=== PATIENT | female | born 1935 | race Caucasian/White ===

== ENCOUNTER 2017-03-08 15:33 | Outpatient (CLI) | payer MEDICARE, BC | END 2017-03-08 15:34 | disposition home or self-care (01) | LOC: BICRAD 15:33 | PROVIDERS: ATTEND Podiatrist Foot & Ankle Surgery | DX: M79.672 Pain in left foot (principal); M79.671 Pain in right foot; G89.29 Other chronic pain ==

== ENCOUNTER 2017-03-12 08:00 | Outpatient (CLI) | payer MEDICARE, BC | END 2017-03-12 08:01 | disposition home or self-care (01) | LOC: BICMRI 08:00 | PROVIDERS: ATTEND Podiatrist Foot & Ankle Surgery | DX: M79.604 Pain in right leg (principal); M79.605 Pain in left leg; M19.071 Primary osteoarthritis, right ankle and foot; M19.072 Primary osteoarthritis, left ankle and foot; Z98.890 Other specified postprocedural states ==

== ENCOUNTER 2017-03-20 11:16 | Emergency (ER) | payer MEDICARE, BC ==
[2017-03-20 11:54] LABS: #Basophils 0.1 thou/uL (0.0-0.2); #Eosinphils 0.3 thou/uL (0.0-0.7); #Lymphocytes 1.9 thou/uL (1.20-3.40); #Monocytes 0.6 thou/uL (0.11-0.59); #Neutrophils 6.6 thou/uL (1.40-6.50); %Basophils 0.5 % (0.0-1.0); %Eosinophils 3.3 % (0.0-10.0); %Lymphocytes 19.9 % (21.0-51.0); %Monocytes 6.4 % (0.0-10.0); %Neutrophils 69.8 % (42.0-75.0); Hemoglobin 14.3 g/dL (12.0-16.0); Mean Corpuscular HGB CONC 32.6 g/dL (32.0-36.0); Mean Corpuscular Hemoglobin 30.7 pg (27.0-31.0); Mean Corpuscular Volume 94.5 fl (81.0-99.0); Mean Platelet Volume 9.3 fL (7.4-10.4); Platelet Count 241 thou/uL (130-400); RBC Distribution Width 12.7 % (11.5-14.5); Red Blood Cell (RBC) Count 4.65 mill/uL (4.20-5.40); White Blood Cell (WBC) Count 9.5 thou/uL (4.8-10.8)
[2017-03-20 12:15] LABS: ALT (SGPT) 24 U/L (8-55); AST (SGOT) 18 U/L (5-34); Alkaline Phosphatase 46 U/L (40-150); Anion Gap 14 mmol/L (10-20); BUN (Urea Nitrogen) 44 mg/dL (9.8-20.1); Bilirubin, Total 0.7 mg/dL (0.2-1.2); CK (CPK) 40 U/L (29-168); Calc. Creatinine Clearance 0 mL/min (70-130); Calcium 9.9 mg/dL (7.8-10.44); Carbon Dioxide 25 mmol/L (23-31); Chloride 101 mmol/L (98-107); Estimated GFR-MDRD 32; Globulin 2.5 g/dL (2.4-3.5); Glucose 117 mg/dL (83-110); Protein, Total 6.5 g/dL (6.0-8.3); Sodium 136 mmol/L (136-145)
[2017-03-20 12:19] LABS: CKMB 1.4 ng/mL (0-6.6); Troponin I Less than 0.010 ng/mL (< 0.028)
--- NOTE | 2017-03-20 13:45 | RAD ---
TWO VIEWS OF THE CHEST: COMPARISON: 10/26/13. HISTORY: Shortness of breath for 2 days/dyspnea. FINDINGS: Two views of the chest show a normal-size cardiomediastinal silhouette. The patient is status post s ternotomy. There is no evidence of consolidation, mass. or pleural effusion. IMPRESSION: No evidence of acute cardiopulmonary disease. POS: [facility]
[2017-03-20 14:03] LABS: Bilirubin Negative (Negative); Blood, Urine Negative (Negative); Clarity CLOUDY (Clear); Glucose, Urine (Dipstick) Negative (Negative); Leukocyte Large (Negative); Nitrite Positive (Negative); Protein, Urine (Dipstick) Negative (Neg-Trace); Specific Gravity, Urine 1.016 (1.002-1.036); Urobilinogen 0.2 mg/dL (0.2-1.0); pH, Urine 5.5 (5.0-9.0)
[2017-03-20 14:05] LABS: Bacteria/HPF 4+ HPF (None Seen); Hyaline Casts/LPF 4-6 HYALINE CAST LPF (0-3 Hyaline); Pathc Cast-AUWi Flag 0.27 (0-2.49); Squamous Epithelial 0-3 HPF (0-3)
[2017-03-20 14:19] LABS: RBC/HPF 0-3 HPF (0-3)
--- NOTE | 2017-03-20 17:03 | CON ---
DATE OF CONSULTATION: 03/20/2016 PRIMARY CARE PHYSICIAN: Rajinder Ashley M.D. REQUESTING PHYSICIAN: Felicity Puente DO REASON FOR CONSULTATION: Urinary tract infection, evaluate for admission. HISTORY OF PRESENT ILLNESS: Ms. Gilbert is a very pleasant 81-year-old white female with a history of coronary artery disease, status post RI in the past, with stable angina, mixed connective tissue d isease with chronic flares of pain and lymphoma in remission. The patient was in normal state of health going through about a 9-month history of chronic right foot pain. About 2 weeks prior to this presentation, she was placed on prednisone 60 mg a day over a 10 day taper and finished that about 2 days ago. Today, she became acutely short of breath, took her blood pressure at home, noted to be 83/50. She w ent ahead and took 2 sublingual nitro anyway and just felt poorly. She has had to come to the emerge ncy department for evaluation. On arrival here, her blood pressure has been in the 100/50 range. She had 2 liters of IV fluids here and laboratory evaluation. She denies any hematuria, dysuria, no fevers or chills, no chest pain. She is no longer short of breath. No nausea, vomiting, no diarrhea, constipation, no GI bleed above or below. Since getting 2 liters of fluid here, her blood pressure has gone up to 130/60 currently. Urinalysis was suspicious for UTI to the emergency room team, so she was started on vancomycin and Zosyn. We a re called for admission. On my evaluation, the patient has no complaints at present. She is feeling perfectly fine. PAST MEDICAL HISTORY: 1. Lymphoma. 2. Coronary artery disease. 3. Mixed connective tissue disease. 4. Hypothyroidism. 5. Hypertension. PAST SURGICAL HISTORY: 1. Appendectomy remotely. 2. CABG x3 vessels about 6 years ago. 3. Hysterectomy, ovaries still in place. 4. Tonsillectomy remotely. 5. Bilateral tubal ligation many, many years ago. HOME MEDICATIONS: 1. Atorvastatin 20 mg p.o. at bedtime. 2. Diovan 320 mg p.o. daily. 3. HCTZ 25 mg daily. 4. Plavix 75 mg daily. 5. Synthroid 50 mcg daily. 6. Aspirin 81 mg daily. 7. Xanax 0.125 mg p.o. at bedtime. 8. Tylenol 1 gram p.o. at bedtime. 9. Multivitamin. 10. Calcium. 11. D3. 12. Co-Q10. 12. B12. ALLERGIES: ADVIL, [place], NITROFURANTOIN, PENICILLIN and TORADOL. FAMILY HISTORY: Negative for clotting or bleeding disorder. No immune dysfunction, no blood tumors. SOCIAL HISTORY: Negative for habits x3. She is . Her and sons accompany her. REVIEW OF SYSTEMS: Ten point review of systems was performed and negative for all other systems exce pt as stated per HPI. PHYSICAL EXAMINATION: VITAL SIGNS: Temperature here 98.2, pulse 68, blood pressure on arrival 100/51 currently 130/62, res piratory rate 19. She is satting 100% on room air. On arrival, she was 99% on room air. GENERAL: She is awake. She is alert. She is oriented x3. She is age appropriate elderly white fem lotus, appears to be in no acute distress. HEENT: Normocephalic, atraumatic. Pupils are equal, round, and reactive to light bilaterally. Muco us membranes are moist. She had no visible lesions. No thrush. NECK: Supple. She has no lymphadenopathy, JVD or thyromegaly. Normal carotid upstroke. LUNGS: Clear. She has no wheezes, no rales, no rhonchi. No prolonged expiratory phase. CARDIOVASCULAR: She has normal S1, S2. No S3 or S4. She has a faint, 2/6 systolic ejection murmur best heard at the right sternal border. There is no holosystolic murmur. ABDOMEN: Soft. It is nontender, nondistended. She has no suprapubic tenderness. She has no rebound , rigidity or guarding. There is normoactive bowel sounds in upper quadrants. EXTREMITIES: No cyanosis, no clubbing. She has no edema. She has 1+ peripheral pulses in the dorsa lis pedis and posterior tibial arteries. SKIN: Warm, moist, and well perfused. She has no rashes, no lesions. NEUROLOGIC: Cranial nerves II-XII grossly intact. She has no focal neurologic deficits. She has 5/ 5 strength and normal speech. MUSCULOSKELETAL: Normal to inspection. She has no joint inflammation and no palpable effusions. LABORATORY DATA: Sodium 136, potassium 4.0, chloride 101, bicarb 28, BUN 44 and creatinine 1.56, and glucose 117. Her creatinine was 1.12 in 04/2016 and 0.99 in 05/2015. Her liver functions are anna l. CBC showed a white count of 9.5, hemoglobin 14.3, hematocrit 43.9 and platelet count of 241,000. Chest x-ray showed no acute cardiopulmonary disease. Specifically, no effusions, no pulmonary edema. No Demian B lines. Urinalysis showed a positive nitrite, large leukocyte esterase, only 4-6 white blood cells, and 4+ ba cteriuria. ASSESSMENT AND PLAN: 1. Acute shortness of breath: Resolved. She has had 99%-100% oxygen saturations, have not been bel ow 99% here. Her chest x-ray is clear. Exam is negative. I am not sure if she had a panic attack. Certainly she reports a low blood pressure when this initially started. But, she seems to be comple tely compensated now. 2. Hypotension: Patient reports a blood pressure in the 80s when she took her 2 nitroglycerin table ts. She said they remained in the 80s. She got 2 liters of fluid here and even before that it has b een no less than 100 systolic here in the emergency department. She is now up to 130/62 after 2 lite rs of IV fluids. I initially thought she might be adrenally insufficient after completing her steroi d course; however, she is only on a 10-12 day course starting 60 mg and appropriately tapered. 3. Abnormal urinalysis. I do not think she has urinary tract infection. She does not have pyuria a nd only has 4-6 white blood cells, she has 4+ bacteria, but denies any hematuria, dysuria or foul odo r. At most, this would be asymptomatic bacteriuria. Given that she is not neutropenic or immunosupp ressed and not , I do not think this warrants treatment at this time. I told if she had more symptoms, that I am working all weekend and please give me a call specifically back here at the hosp ital and I will be happy to call her in something, but at this time, I do not think it warrants treat ment. She was given vancomycin and Zosyn in the ER. She is fpc through the vancomycin. I did s peak with Dr. Puente and let her know she can stop both of this. 4. History of coronary artery disease, never had chest pain. She only has shortness of breath. I d id ask her, in the future when she goes to take nitroglycerin that she does check her blood pressure prior to and not to administer if her systolic is less than 100. 5. History of mixed connective tissue disease and chronic right lower extremity pain status post jaida roid taper. It seems to be completely resolved now. At this point, I have dismissed her from the emergency department. She is going to call Dr. Dion hill rst thing Wednesday morning for followup appointment. I did ask her to drink plenty of fluids and keep an eye on her blood pressure and if something changes, we are here.
== END 2017-03-20 16:25 | disposition home or self-care (01) ==
LOC: ERS 11:16
DX: I95.9 Hypotension, unspecified (principal); N39.0 Urinary tract infection, site not specified; I25.2 Old myocardial infarction; Z79.82 Long term (current) use of aspirin; Z79.899 Other long term (current) drug therapy
CPT/HCPCS: 71046; 80053; 81003; 81015; 82553; 83605; 83880; 84484; 85025; 87077; 87086; 87186; 93005; 96361; 96365; J3370

== ENCOUNTER 2017-12-17 21:20 | Emergency (ER) | payer MEDICARE, BC ==
[2017-12-17 22:00] LABS: Bilirubin Negative (Negative); Blood, Urine Small (Negative); Clarity TURBID (Clear); Glucose, Urine (Dipstick) Negative (Negative); Leukocyte Large (Negative); Nitrite Positive (Negative); Protein, Urine (Dipstick) 30 mg/dL (Neg-Trace); Specific Gravity, Urine 1.022 (1.002-1.036); Urobilinogen 0.2 mg/dL (0.2-1.0)
[2017-12-17 22:01] LABS: Bacteria/HPF 4+ HPF (None Seen); Hyaline Casts/LPF 4-6 HYALINE CAST LPF (0-3 Hyaline); Pathc Cast-AUWi Flag 1.01 (0-2.49); Squamous Epithelial 0-3 HPF (0-3)
[2017-12-17] MEDS ORDERED: cefTRIAXone\\ROCEPHIN 2 GM VIAL ONE (22:12)
[2017-12-17] MEDS ORDERED: Ondansetron HCl/PF 4 MG/2 ML Vial ONE (22:12)
[2017-12-17 22:20] LABS: #Eosinphils 0.1 thou/uL (0.0-0.7); #Monocytes 0.6 thou/uL (0.11-0.59); #Neutrophils 8.4 thou/uL (1.40-6.50); %Basophils 0.1 % (0.0-1.0); %Eosinophils 0.5 % (0.0-10.0); %Lymphocytes 9.6 % (21.0-51.0); %Monocytes 5.6 % (0.0-10.0); %Neutrophils 84.2 % (42.0-75.0); Hemoglobin 13.8 g/dL (12.0-16.0); Mean Corpuscular HGB CONC 32.8 g/dL (32.0-36.0); Mean Corpuscular Hemoglobin 29.4 pg (27.0-31.0); Mean Corpuscular Volume 89.7 fL (78.0-98.0); Mean Platelet Volume 9.7 fL (7.4-10.4); Platelet Count 242 thou/uL (130-400); RBC Distribution Width 14.8 % (11.5-14.5)
[2017-12-17 22:45] LABS: CKMB 1.1 ng/mL (0-6.6); Troponin I Less than 0.010 ng/mL (< 0.028)
[2017-12-17 22:47] LABS: ALT (SGPT) 15 U/L (8-55); AST (SGOT) 17 U/L (5-34); Albumin 4.6 g/dL (3.4-4.8); Alkaline Phosphatase 65 U/L (40-150); Anion Gap 16 mmol/L (10-20); BUN (Urea Nitrogen) 36 mg/dL (9.8-20.1); Bilirubin, Total 1.1 mg/dL (0.2-1.2); CK (CPK) 43 U/L (29-168); Calc. Creatinine Clearance 0 mL/min (70-130); Calcium 10.7 mg/dL (7.8-10.44); Carbon Dioxide 29 mmol/L (23-31); Chloride 98 mmol/L (98-107); Estimated GFR-MDRD 44; Globulin 3.2 g/dL (2.4-3.5); Glucose 134 mg/dL (83-110); Lipase 23 U/L (8-78); Potassium 3.8 mmol/L (3.5-5.1); Protein, Total 7.8 g/dL (6.0-8.3); Sodium 139 mmol/L (136-145)
[2017-12-17] MEDS ORDERED: Promethazine HCl 25 MG/ML VIAL ONE (23:45)
== END 2017-12-18 01:56 | disposition home or self-care (01) ==
LOC: ERS 21:20
DX: R11.2 Nausea with vomiting, unspecified (principal); N39.0 Urinary tract infection, site not specified; F32.9 Major depressive disorder, single episode, unspecified; Z79.899 Other long term (current) drug therapy; Z79.82 Long term (current) use of aspirin
CPT/HCPCS: 80053; 81003; 81015; 82553; 83605; 83690; 84484; 85025; 96361; 96365; 96367; 96375; J0696; J2405; J2550

== ENCOUNTER 2018-10-03 11:48 | Inpatient (IN) | payer MEDICARE, BC ==
[2018-10-03 12:24] LABS: #Lymphocytes 0.9 thou/uL (1.20-3.40); #Monocytes 0.3 thou/uL (0.11-0.59); #Neutrophils 8.1 thou/uL (1.40-6.50); %Basophils 0.2 % (0.0-1.0); %Eosinophils 0.1 % (0.0-10.0); %Lymphocytes 9.6 % (21.0-51.0); %Monocytes 3.6 % (0.0-10.0); %Neutrophils 86.5 % (42.0-75.0); Hemoglobin 8.5 g/dL (12.0-16.0); Mean Corpuscular HGB CONC 33.1 g/dL (32.0-36.0); Mean Corpuscular Hemoglobin 30.6 pg (27.0-31.0); Mean Corpuscular Volume 92.4 fL (78.0-98.0); Mean Platelet Volume 9.4 fL (7.4-10.4); Platelet Count 179 thou/uL (130-400); RBC Distribution Width 12.8 % (11.5-14.5); Red Blood Cell (RBC) Count 2.79 mill/uL (4.20-5.40); White Blood Cell (WBC) Count 9.3 thou/uL (4.8-10.8)
[2018-10-03] MEDS ORDERED: PROPOFOL 200 MG/20 ML VIAL ONE (12:31)
[2018-10-03 12:43] LABS: Lactic Acid 1.9 mmol/L (0.5-2.2)
[2018-10-03 12:46] LABS: ALT (SGPT) 9 U/L (8-55); AST (SGOT) 12 U/L (5-34); Albumin 3.5 g/dL (3.4-4.8); Alkaline Phosphatase 41 U/L (40-150); Anion Gap 9 mmol/L (10-20); BUN (Urea Nitrogen) 70 mg/dL (9.8-20.1); Bilirubin, Total 0.3 mg/dL (0.2-1.2); Calc. Creatinine Clearance 0 mL/min (70-130); Calcium 8.8 mg/dL (7.8-10.44); Carbon Dioxide 22 mmol/L (23-31); Chloride 113 mmol/L (98-107); Estimated GFR-MDRD 65; Globulin 1.9 g/dL (2.4-3.5); Glucose 111 mg/dL (83-110); INR-International Normal Ratio 1.1; PTT 27.6 SEC (22.9-36.1); Potassium 4.5 mmol/L (3.5-5.1); Protein, Total 5.4 g/dL (6.0-8.3); Prothrombin Time 14.1 SEC (12.0-14.7); Sodium 139 mmol/L (136-145)
[2018-10-03] MEDS ORDERED: Pantoprazole 40 MG VIAL ONE (13:03)
[2018-10-03] MEDS ORDERED: Pantoprazole 40 MG VIAL IVP SCH (13:15)
[2018-10-03] MEDS ORDERED: Bisacodyl 5 MG TAB PO PRN (14:44)
[2018-10-03] MEDS ORDERED: Acetaminophen 325 MG TAB PO PRN (14:44)
[2018-10-03] MEDS ORDERED: Pantoprazole 80 MG in Sodium Chloride 0.9% 100 ML IVPB SCH (14:45)
[2018-10-03] MEDS ORDERED: PROPOFOL 0 ML ONE (15:12)
--- NOTE | 2018-10-03 15:31 | HP ---
PRIMARY CARE PROVIDER: Dr. Rajinder Ashley. CHIEF COMPLAINT: Melena. HISTORY OF PRESENT ILLNESS: Ms. Gilbert is a pleasant 83-year-old lady, who was seen at [facility] on October 03, 2018. She has a history of coronary artery disease, followed by Dr. Mondragon. Three years ago, she had upper GI bleed while she was on aspirin and Plavix. Her aspirin dose was decreased to 81 mg a day and aspirin and Plavix were held for a few days and resumed. She reports doing well until 2 days ago. Over the last 2 or 3 days, she has noticed black stools. Yesterday, she noticed bright red blood in her stool. She denies any abdominal pain. She denies any fevers or chills. She denies any lightheadedness. She reports feeling generalized weakness. She is usually very active, attending to her guardian and staff, but she has been unable to do that over the last day or so. She therefore presented to the emergency room. REVIEW OF SYSTEMS: All systems were reviewed and found to be negative except for the pertinent positives or negatives as mentioned above. 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, interstitial cystitis, osteoporosis, hypertension, hypothyroidism, gastroesophageal reflux disease, and upper GI bleed. PAST SURGICAL HISTORY: Status post urethral dilatation, status post complete hysterectomy and appendectomy, PCI with coronary stents and coronary artery disease, status post 3-vessel coronary artery bypass graft. FAMILY HISTORY: Significant for colon cancer. SOCIAL HISTORY: The patient denies tobacco use, alcohol use, or recreational drug use. ALLERGIES: PENICILLIN, ESTROGEN, CODEINE, AND PROGESTERONE. CURRENT MEDICATIONS: 1. Lipitor 20 mg daily. 2. Desvenlafaxine 50 mg daily. 3. Irbesartan 300 mg daily. 4. Plavix 75 mg daily. 5. Aspirin 81 mg daily. 6. Calcium 500 mg daily. 7. Vitamin D3 2000 units daily. 8. Coenzyme Q10 100 mg 2 times a day. 9. [place]-3 daily. 10. Zofran 4 to 8 mg every 6 hours as needed. 11. Synthroid 75 mcg daily. 12. Xanax PRN daily. CODE STATUS: I discussed her code status. She is full code. PHYSICAL EXAMINATION: GENERAL: On examination, Ms. Gilbert is awake and alert, not in acute distress. VITAL SIGNS: Blood pressure is 113/43, pulse 72, respiratory rate 20, and oxygen saturation 99% on room air. She is afebrile. EYES: No scleral icterus, no conjunctival pallor. ENT: Moist mucosal membranes. No oropharyngeal erythema or exudates. NECK: Supple, nontender, trachea is midline. RESPIRATORY: Accessory muscles of breathing are not active. Chest wall movements are symmetric bilaterally. LUNGS: Clear to auscultation without wheeze, rhonchi, or crepitations. CARDIOVASCULAR: S1 and S2 are heard, regular. Peripheral pulses palpable. No carotid bruit. No pericardial rub. ABDOMEN: Soft, nontender, bowel sounds heard, no hepatomegaly, no splenomegaly. NEUROLOGIC: Cranial nerves 2 through 12 are intact. MUSCULOSKELETAL: Power is 5/5 in all 4 extremities. SKIN: No rashes or subcutaneous nodules. LYMPHATIC: No cervical lymphadenopathy. PSYCHIATRIC: Normal mood, normal affect. The patient is oriented to person, place, and time. LABORATORY DATA: Ms. Gilbert's labs and investigations were reviewed. A 12- lead electrocardiogram shows normal sinus rhythm, no ST changes to suggest an acute coronary syndrome. She has premature ventricular complexes. She has normal white count, normocytic anemia with hemoglobin 8.5, last known hemoglobin 13.8 in November 2017, normal platelet count, INR 1.1, normal sodium, normal potassium, elevated blood urea nitrogen of 70, normal creatinine, and unremarkable LFTs. Lactic acid is normal at 1.9. ASSESSMENT AND PLAN: Ms. Gilbert is a pleasant 83-year-old lady, who was seen at [facility] on October 03, 2018. Her problem list includes : 1. Anemia of acute blood loss: Ms. Gilbert is presenting with anemia of acute blood loss resulting in symptomatic anemia. She will be admitted to the hospital for further management. We will check her H and H again and transfuse as needed. 2. Gastrointestinal bleed: Ms. Gilbert is presenting with gastrointestinal bleed, most likely upper gastrointestinal bleed in the context of aspirin and Plavix use. We will start her on PPI drip. We will consult GI Service for opinion and help with management. 3. Coronary artery disease: This appears to be stable. We will have to decide regarding dual antiplatelet therapies moving forward. We will consult Cardiology Service if needed. 4. Hypertension: We will monitor vital signs and titrate antihypertensives as needed. 5. Hypothyroidism: We will continue Synthroid. 6. Dyslipidemia: Continue Lipitor. Many thanks for allowing me to participate in your patient's care. Please feel free to contact me with any questions or concerns. LEVEL OF RISK: Moderate. LEVEL OF COMPLEXITY: Moderate. Job ID: [id number] MTDD
--- NOTE | 2018-10-03 15:34 | CON ---
DATE OF CONSULTATION: 10/03/2018 REQUESTING PHYSICIAN: Dr. Coronado. REASON FOR CONSULTATION: Melena and upper GI bleeding. HISTORY OF PRESENT ILLNESS: Amna Gilbert is a very pleasant 83-year-old woman, seen in the GI outpatient setting by my colleague, Dr. Sigifredo Moore. She has had normal colonoscopies in 1999, 2004, and 2010. She had a myocardial infarction in 2007 and has undergone a prior CABG, and is on dual anti-platelet therapy with Plavix 75 mg daily and aspirin 81 mg daily. I met her briefly in July 2014 when she presented with melena and weakness. Hemoglobin got down to 10.4 at that time. EGD in July 2014 demonstrated a 7 mm ulcer at the incisura, severe erosive gastritis and a couple of pyloric channel ulcerations. She is treated with PPI therapy. Followup EGD in September 2014 showed essentially remission of the gastritis and scar at the incisura. The patient has not stayed on long-term acid suppression. She does not take NSAIDs. She remains on aspirin and Plavix. She has no chronic gastrointestinal symptoms. She states that over the past 3 days or so, her bowel movements became dark and tarry, then last night she passed what appeared to be a large amount of jet black stool mixed with bright red blood. She began to feel weak and was actually having trouble getting out of the bed last night. This prompted her presentation this morning. She continues to feel weak, though she has not had any further bowel movements today. There is no nausea, vomiting, or any abdominal pain. She is hemodynamically stable. Her hemoglobin is 8.5 and note, BUN elevated to 70 out of proportion to creatinine only 0.8. She has received 80 mg of IV Protonix and is awaiting a medical bed, hemodynamically stable. REVIEW OF SYSTEMS: Full review of systems including constitutional, head, eyes, ears, nose, throat, GI, , cardiovascular, respiratory, musculoskeletal, neurologic systems are negative except as noted in the HPI. PAST MEDICAL HISTORY: Coronary artery disease status post CABG on dual anti-platelet therapy, myocardial infarction in 2007, mixed connective tissue disease, hypertension, hyperlipidemia, thyroid disease, recurrent urinary tract infections, and follicular B-cell lymphoma in remission since 1999. PAST SURGICAL HISTORY: Appendectomy and hysterectomy. ALLERGIES: NSAIDS, PENICILLAMINE, CODEINE, ESTROGEN, AND NITROFURANTOIN. OUTPATIENT MEDICATIONS: 1. Lipitor. 2. Desvenlafaxine. 3. Irbesartan. 4. Plavix 75 mg daily. 5. Aspirin 81 mg daily. 6. Calcium 500 mg daily. 7. Vitamin D3 of daily. 8. CoQ10. 9. [place]-3. 10. Ciprofloxacin 500 mg twice daily. 11. Zofran p.r.n. 12. Synthroid 75 mcg daily. 13. Xanax p.r.n. SOCIAL HISTORY: No smoking or alcohol use. Her has dementia and she is his primary disabilities caregiver. FAMILY HISTORY: Her maternal aunt had colon cancer. PHYSICAL EXAMINATION: VITAL SIGNS: Temperature 98.0, 99% oxygen saturation on room air, pulse 73, and blood pressure 123/49. GENERAL: An 83-year-old woman, lying in bed comfortably, in no acute distress. SKIN: She is pale. No jaundice. No rashes were palpable. HEENT: Eyes; no scleral icterus. Extraocular movements intact. ENT; mucous membranes moist. No oral lesions. LYMPH: No submandibular or supraclavicular lymphadenopathy. THYROID: Nontender to palpation. HEART: Regular rate and rhythm. LUNGS: Clear to auscultation bilaterally. ABDOMEN: Soft and nontender to palpation. EXTREMITIES: No peripheral edema. VESSELS: Radial pulses 2+ bilaterally. NEUROLOGIC: Cranial nerves 2 through 12 intact bilaterally. No focal deficits. LABORATORY STUDIES: Hemoglobin is 8.5, hematocrit 25.8, normal MCV 92.4, WBC 9.3, platelets 179. Sodium 139, potassium 4.5, BUN elevated to 70, creatinine only 0.83, glucose 111. Lactic acid 1.9. INR 1.1. LFTs all normal. ASSESSMENT AND PLAN: 1. Melena. 2. Acute blood loss anemia. 3. History of peptic ulcer disease, last esophagogastroduodenoscopy in September 2014. The patient's presentation is very similar to when she presented in July 2014, with multiple gastric ulcers and severe gastritis. Note, her elevated BUN to creatinine ratio. It is unclear to what degree her anemia at this time is acute versus chronic, but I suspect it is more acute with a normal MCV. Suspect recurrent gastritis or peptic ulcer disease. She is stable at this time, but esophagogastroduodenoscopy is certainly indicated. We will plan for upper endoscopy later today. Continue on the IV PPI and n.p.o. status for now. Further recommendations following endoscopy. Thank you for the consultation. Please call anytime with questions or concerns. Job ID: [id number]
[2018-10-03 16:02] LABS: Hemoglobin 9.2 g/dL (12.0-16.0)
[2018-10-03] MEDS ORDERED: Midazolam HCl 2 mg/2 ml Vial ONE (16:37)
[2018-10-03] MEDS ORDERED: Ketamine 50 MG/ML (10ML VIAL) ONE (16:37)
[2018-10-03] MEDS ORDERED: Ondansetron HCl/PF 4 MG/2 ML Vial IVP PRN (17:48)
[2018-10-03] MEDS: Sodium Chloride 0.9% 1,000 ML IV SCH (19:00)
[2018-10-03 23:14] LABS: Hemoglobin 7.1 g/dL (12.0-16.0)
--- NOTE | 2018-10-04 00:30 | OP ---
DATE OF PROCEDURE: 10/03/2018 [employer] ENGINEER SURGEON: None. PROCEDURE PERFORMED: Esophagogastroduodenoscopy, diagnostic. INDICATIONS FOR PROCEDURE: 1. Melena. 2. Acute blood loss anemia. 3. Prior history of peptic ulcer disease. MEDICATIONS: See Anesthesia record. FINDINGS: After discussion of the risks, benefits, and alternatives of the procedure, informed consent was obtained and witnessed. Pre-endoscopic cardiopulmonary examination was satisfactory. Time-out was performed before sedation was achieved. Sedation was achieved with Anesthesia assistance in the endoscopy unit. A Pentax adult upper endoscope was placed into the oropharynx and passed through the cricopharyngeus under direct visualization. The esophageal mucosa appeared normal throughout with a normal-appearing Z-line. The endoscope was advanced into the stomach. Forward and retroflexed views of the entire gastric mucosa were obtained. There was no evidence of any old blood or active bleeding in the stomach. There was no evidence of any esophageal or gastric varices. The mucosa of the gastric fundus and proximal body appeared normal. At the incisura and in the gastric antrum, there was severe erosive gastritis, characterized by some edema, erythema and friability. There were also multiple ulcerations in the gastric antrum and at the incisura. I counted 5 separate clean based shallow ulcerations. There was another clean based erosion at the pyloric channel. There was no evidence of any blood clot or visible vessel, no high-risk stigmata for rebleeding seen. No endoscopic therapy was applied. The endoscope was advanced through the pylorus and into the first, second and third portions of the duodenum. The duodenal mucosa appeared normal. I was able to advance the endoscope another 30 cm or so into what I estimate to be the proximal jejunum. All of the small bowel mucosa appeared normal to the extent examined. The upper endoscope was completely withdrawn and the patient allowed to recover. The patient tolerated the procedure well. There were no immediate postprocedure complications. IMPRESSION: 1. Multiple (5) shallow ulcerations in the gastric antrum and incisura, all clean based, without any high-risk stigmata for rebleeding. No endoscopic therapy applied. 2. Shallow pyloric channel erosion, nonbleeding. 3. No evidence of any old blood or active bleeding. 4. Otherwise unremarkable esophagogastroduodenoscopy. RECOMMENDATIONS: 1. IV Protonix 40 mg every 12 hours. 2. Advance diet. 3. Follow H and H tomorrow, and monitor for any signs of recurrent overt bleeding. If the hemoglobin is stable and there is no further overt bleeding, then the patient could potentially be discharged home tomorrow on Protonix 40 mg by mouth twice daily, to follow up with Dr. Moore in the GI Clinic in the next month. 4. The patient can continue on aspirin and Plavix. She is likely going to need to continue acid suppression long-term. Please call if needed. Job ID: [id number]
[2018-10-04] MEDS ORDERED: ALPRAZolam 0.25 MG TAB PO SCH (03:00)
[2018-10-04] MEDS: Sodium Chloride 0.9% 1,000 ML IV SCH (05:05)
[2018-10-04 05:30] LABS: #Lymphocytes 1.3 thou/uL (1.20-3.40); #Monocytes 0.3 thou/uL (0.11-0.59); #Neutrophils 3.6 thou/uL (1.40-6.50); %Basophils 0.4 % (0.0-1.0); %Lymphocytes 24.2 % (21.0-51.0); %Monocytes 5.3 % (0.0-10.0); %Neutrophils 70.1 % (42.0-75.0); Hemoglobin 6.5 g/dL (12.0-16.0); Mean Corpuscular HGB CONC 33.4 g/dL (32.0-36.0); Mean Corpuscular Hemoglobin 31.2 pg (27.0-31.0); Mean Corpuscular Volume 93.2 fL (78.0-98.0); Mean Platelet Volume 8.9 fL (7.4-10.4); Platelet Count 127 thou/uL (130-400); Red Blood Cell (RBC) Count 2.08 mill/uL (4.20-5.40); White Blood Cell (WBC) Count 5.2 thou/uL (4.8-10.8)
[2018-10-04 05:50] LABS: Anion Gap 8 mmol/L (10-20); BUN (Urea Nitrogen) 37 mg/dL (9.8-20.1); Calc. Creatinine Clearance 0 mL/min (70-130); Calcium 8.3 mg/dL (7.8-10.44); Carbon Dioxide 23 mmol/L (23-31); Chloride 112 mmol/L (98-107); Estimated GFR-MDRD 72; Glucose 101 mg/dL (83-110); Potassium 4.1 mmol/L (3.5-5.1); Sodium 139 mmol/L (136-145)
[2018-10-04 12:14] LABS: Hemoglobin 7.8 g/dL (12.0-16.0)
[2018-10-04 14:10] VITALS: BMI 26.0
--- NOTE | 2018-10-04 14:32 | PRG ---
DATE OF SERVICE: 10/04/2018 SUBJECTIVE: Ms. Gilbert is feeling really well today. She did pass 1 further dark tarry bowel movement last night, but none so far today. She is tolerating her diet. There is no abdominal pain. She has remained hemodynamically stable. Hemoglobin trended down further to 6.5 by this morning and after 1 unit RBC transfusion is up to 7.8. Note, the BUN has come down precipitously from 70 to 37. OBJECTIVE: VITAL SIGNS: Temperature 98.4, blood pressure 114/67, pulse 68, 98% oxygen saturation on room air. GENERAL: No acute distress. HEART: Regular rate and rhythm. LUNGS: Clear to auscultation bilaterally. ABDOMEN: Soft and nontender to palpation. EXTREMITIES: No peripheral edema. LABORATORY STUDIES: Hemoglobin 7.8 after 1 unit RBC transfusion, WBC 5.2, platelets 127. INR 1.1. Sodium 139, potassium 4.1, BUN came down from 70 to 37, creatinine 0.76, glucose 101. ASSESSMENT AND PLAN: 1. Multiple gastric ulcers with hemorrhage. 2. Acute blood loss anemia. I note her blood count trended down from yesterday, but I do not think that this represents rebleeding. She had only one further dark tarry stool, which likely represents old blood, and the BUN has been dropping precipitously as she has remained hemodynamically stable. Also, her gastric ulcerations did not have any high-risk stigmata that would lead me to believe that she has done significant rebleeding. I think at this point the patient could be discharged home continuing on Protonix 40 mg by mouth twice daily. She can follow up with Dr. Moore in the GI Clinic in the next month. She is likely going to need to continue acid suppression long-term. Please call me anytime with questions or concerns. Job ID: [id number]
[2018-10-04 15:19] VITALS: BP 102/64; TEMP 98.3
--- NOTE | 2018-10-05 03:58 | DIS ---
DATE OF ADMISSION: 10/03/2018 DATE OF DISCHARGE: 10/04/2018 PRIMARY CARE PROVIDER: Rajinder Ashley MD DISCHARGE DIAGNOSES: 1. Anemia of acute blood loss. 2. Symptomatic anemia. 3. Upper gastrointestinal bleed. 4. Multiple ulcerations in the gastric antrum and incisura. 5. Shallow pyloric channel erosion. CONDITION OF PATIENT ON THE DAY OF DISCHARGE: Stable. I assessed Ms. Gilbert on the day of discharge. She denies any chest pain or shortness of breath. Vital signs are stable. S1 and S2 are heard, regular. Lungs are clear to auscultation bilaterally. FOLLOWUP APPOINTMENTS: With primary care provider in 3 days time and with Gastroenterology Service in 3-4 weeks time. DISCHARGE MEDICATIONS: She is being discharged home on Protonix 40 mg orally two times a day. Otherwise, no change was made to her pre-admission home medications as dictated on my history and physical note dated October 03, 2018. Of note, she is being continued on aspirin and Plavix. HOSPITAL COURSE: Ms. Gilbert is a pleasant 83-year-old lady, who was admitted to [facility] on October 03, 2018, for anemia of acute blood loss and symptomatic anemia. She was seen by Gastroenterology Service, Dr. Cedeno. She underwent EGD on October 03, which showed multiple shallow ulcerations in the gastric antrum and incisura, all clean based, without any high-risk stigmata for bleeding. She also had shallow pyloric channel erosion, which was nonbleeding. There was no evidence of any old blood or active bleeding. The patient's hemoglobin was found to be low at 6.5 on October 04, 2018. It improved to 7.8 after transfusion of 1 unit packed RBC. She has been cleared for discharge by Gastroenterology Service. She was advised to check with her transportation modeler whether she needs to be on both aspirin and Plavix. On the day of discharge, she has hemoglobin 7.8, hematocrit 23.4, sodium 139, potassium 4.1, blood urea nitrogen 37, and creatinine 0.76. Many thanks for allowing me to participate in your patient's care. Please feel free to contact me with any questions or concerns. DISCHARGE DESTINATION: Home. TIME SPENT: Total amount of time spent coordinating this discharge: 32 minutes. Job ID: [id number]
== END 2018-10-04 16:59 | disposition home or self-care (01) | DRG 378 ==
LOC: ERS 11:48 → ERHOLD 13:10 → T4-B 18:44
PROVIDERS: ADMIT Internal Medicine; ATTEND Internal Medicine
PROC: 0DJ08ZZ Inspection of Upper Intestinal Tract, Via Natural or Artificial Opening Endoscopic (ICD-10-PCS; principal; 2018-10-03)
DX: K25.4 Chronic or unspecified gastric ulcer with hemorrhage (principal); D62 Acute posthemorrhagic anemia; C82.90 Follicular lymphoma, unspecified, unspecified site; I25.10 Atherosclerotic heart disease of native coronary artery without angina pectoris; E78.5 Hyperlipidemia, unspecified; E03.9 Hypothyroidism, unspecified; I10 Essential (primary) hypertension; Z90.49 Acquired absence of other specified parts of digestive tract; Z98.51 Tubal ligation status; Z88.8 Allergy status to other drugs, medicaments and biological substances; Z88.5 Allergy status to narcotic agent; Z88.0 Allergy status to penicillin; Z79.82 Long term (current) use of aspirin; Z79.899 Other long term (current) drug therapy; Z95.1 Presence of aortocoronary bypass graft; I25.2 Old myocardial infarction; Z90.710 Acquired absence of both cervix and uterus
CPT/HCPCS: 36415; 36430; 80048; 80053; 83605; 85025; 85610; 85730; 86850; 86900; 86901; 93005; C9113; J2250; J2704; J3490; P9016

== ENCOUNTER 2019-09-19 15:23 | Inpatient (IN) | payer MEDICARE, BC, OTHER ==
[2019-09-19 16:22] LABS: #Basophils 0.1 thou/uL (0.0-0.2); #Lymphocytes 0.7 thou/uL (1.20-3.40); #Monocytes 0.5 thou/uL (0.11-0.59); #Neutrophils 12.8 thou/uL (1.40-6.50); %Eosinophils 0.3 % (0.0-10.0); %Monocytes 3.2 % (0.0-10.0); %Neutrophils 90.5 % (42.0-75.0); Hemoglobin 10.9 g/dL (12.0-16.0); Mean Corpuscular HGB CONC 32.6 g/dL (32.0-36.0); Mean Corpuscular Hemoglobin 29.8 pg (27.0-31.0); Mean Corpuscular Volume 91.6 fL (78.0-98.0); Mean Platelet Volume 7.8 fL (7.4-10.4); Platelet Count 446 thou/uL (130-400); RBC Distribution Width 12.5 % (11.5-14.5); Red Blood Cell (RBC) Count 3.65 mill/uL (4.20-5.40); White Blood Cell (WBC) Count 14.2 thou/uL (4.8-10.8)
--- NOTE | 2019-09-19 16:43 | RAD ---
Chest one view HISTORY: Respiratory distress. COVID positive. COMPARISON: 06/14/2018. FINDINGS: Cardiac silhouette is magnified by projection. Pulmonary vasculature is within normal limit s. Mediastinum is midline with postoperative changes. In addition to scattered areas of interstitial thickening, there are patchy bilateral peripheral area s of infiltrate. No lobar consolidation or evidence of pneumothorax. phototypesetting equipment monitor leads overlie the chest. Dystroph ic calcification overlies each rotator cuff. IMPRESSION : Patchy bilateral infiltrates. Findings supportive of COVID pneumonitis.
[2019-09-19 16:47] LABS: ALT (SGPT) 51 U/L (8-55); AST (SGOT) 38 U/L (5-34); Alkaline Phosphatase 68 U/L (40-110); Anion Gap 14 mmol/L (10-20); BUN (Urea Nitrogen) 26 mg/dL (9.8-20.1); Bilirubin, Total 0.2 mg/dL (0.2-1.2); Calc. Creatinine Clearance 0 mL/min (70-130); Carbon Dioxide 25 mmol/L (23-31); Chloride 101 mmol/L (98-107); Estimated GFR-MDRD 50; Globulin 3.3 g/dL (2.4-3.5); Glucose 128 mg/dL (83-110); Potassium 4.3 mmol/L (3.5-5.1); Protein, Total 6.3 g/dL (6.0-8.3); Sodium 136 mmol/L (136-145)
[2019-09-19] MEDS ORDERED: Dexamethasone 10 MG/ML VIAL ONE (16:49)
[2019-09-19] MEDS ORDERED: Albuterol 200 PUFF (6.7GM INHALER) ONE (17:12)
[2019-09-19] MEDS ORDERED: Vancomycin 1 GM/200 ML BAG ONE (17:24)
[2019-09-19 20:02] VITALS: BMI 27.9
[2019-09-19] MEDS ORDERED: Acetaminophen 325 MG TAB PO PRN (20:14)
[2019-09-19 20:30] LABS: Lactic Acid 3.7 mmol/L (0.5-2.2)
[2019-09-19] MEDS ORDERED: Azithromycin 500 MG in Sodium Chloride 0.9% 250 ML 250 ML IVPB SCH (21:00)
[2019-09-19] MEDS: Famotidine 20 MG TAB PO SCH (21:22)
--- NOTE | 2019-09-19 21:51 | HP ---
PRIMARY CARE PHYSICIAN: Dr. Ashley. CHIEF COMPLAINT: "My breathing is getting worse." HISTORY OF PRESENT ILLNESS: The patient is a very pleasant 83-year-old female with a past medical history significant for COVID. She presents to the ER today for increasing shortness of breath. She was tested 10 days ago and had minimal symptoms, but over the past few days, she has been having a more difficult time breathing. Today, she has actually required oxygenation where she normally does not wear oxygen at home. She was unable to ambulate around her house without getting short of breath. She has been on steroids for approximately 5-6 days now that were prescribed by her PCP. She says that she has not had any fever over the past few days, but has been waking up at night, at times sweating. When she checked her O2 sats at home, she was in the 80s. Her grandson brought her into the ER today and she was 84% on room air. She recovered the 94% on 4 L. Today, in the ER, they completed a chest x-ray and lab work. PAST MEDICAL HISTORY: includes; 1. FL. 2. Lymphoma. 3. Mixed connective tissue disease. PAST SURGICAL HISTORY: 1. Triple bypass. 2. Appendectomy. 3. Hysterectomy. 4. Tonsillectomy. 5. Tubal ligation. 6. Bowel resection. 7. Knee replacement. 8. Pelvic abscess surgery. ALLERGIES: 1. ADVIL. 2. [place]. 3. NITROFURANTOIN. 4. PENICILLIN. 5. TORADOL. MEDICATIONS: 1. [place]-3 fatty acids 1 capsule daily. 2. Synthroid 75 mcg p.o. daily. 3. Protonix 40 mg p.o. b.i.d. 4. Zofran 4 mg p.o. q.6 hours p.r.n. 5. Irbesartan 300 mg p.o. daily. 6. Vitamin D3 of 2000 units p.o. daily. 7. Calcium carbonate 500 mg p.o. daily. 8. Lipitor 20 mg at night. 9. Aspirin 81 mg daily. 10. Xanax 0.25 mg p.o. at bedtime. 11. [place] 50 mg p.o. daily. 12. Plavix 75 mg p.o. daily. SOCIAL HISTORY: The patient lives at home. She is retired. She takes care of her . She denies any alcohol, smoking, or drug use. FAMILY HISTORY: Noncontributory to this admission. REVIEW OF SYSTEMS: All other review of systems was negative unless noted in the HPI. PHYSICAL EXAMINATION: VITAL SIGNS: Blood pressure 118/60, pulse 93, respiratory rate 27, temperature 98.7 orally, no pain, 96% on 3 L. GENERAL: The patient appears dyspneic after walking across room. HEAD: Atraumatic and normocephalic. EYES: PERRLA. Extraocular muscles intact. NECK: Normal range of motion. Trachea midline. RESPIRATORY: Breath sounds diminished throughout. Dry cough. Symmetrical chest rise. CARDIOVASCULAR: Regular rate and rhythm. No rubs. No murmurs. No gallops. ABDOMEN: Nontender. No guarding. No rigidity. EXTREMITIES: No edema. No cyanosis. Posterior tibial pulse and pedal pulse are intact. NEURO: Cranial nerves 2 through 12 grossly intact. SKIN: No rashes. Warm, dry, intact. PSYCH: Normal affect. Normal behavior. IMAGING STUDIES: Chest x-ray shows patchy bilateral infiltrates, findings supportive of COVID pneumonitis. LABORATORY DATA: WBCs 14.2, hemoglobin 10.9, hematocrit 33.4, platelets 446, neutrophils 90.5. Sodium 136, potassium 4.3, BUN 26, creatinine 1.05, GFR 50, glucose 128. Lactic acid 4.1. AST 30. Troponin 0.010. BNP 213.3. IMPRESSION AND PLAN: 1. Hypoxia secondary to COVID. We will keep the patient on oxygen over night and continue her steroids along with antibiotics, a blood culture was collected to see if this has a bacterial presence. Infectious Disease has been consulted to see the patient. We will continue to monitor the patient's vital signs throughout the night and could use p.r.n. antitussives or Tylenol as needed. 2. Cough. We will continue to treat with p.r.n. antitussives. 3. Hyperlipidemia. We will start the patient's home medications. 4. GI prophylaxis covered with home Protonix. 5. DVT prophylaxis includes Lovenox. The patient wishes to be full code. She wishes for her surrogate decision maker to be Amanda Mccarty, her daughter, phone number is [phone], and her step-son, Austen, phone number is [phone]. The patient has been discussed with Dr. Heaton. Job ID: [id number] MTDD
[2019-09-20] MEDS: Levothyroxine Sodium 75 MCG TAB PO SCH (05:02)
[2019-09-20] MEDS: Benzonatate 100 MG CAP PO PRN ×2 (05:02→20:55)
[2019-09-20 06:07] LABS: Hemoglobin 10.4 g/dL (12.0-16.0); Mean Corpuscular HGB CONC 32.1 g/dL (32.0-36.0); Mean Corpuscular Hemoglobin 29.4 pg (27.0-31.0); Mean Corpuscular Volume 91.7 fL (78.0-98.0); Mean Platelet Volume 7.7 fL (7.4-10.4); Platelet Count 406 thou/uL (130-400); RBC Distribution Width 12.5 % (11.5-14.5); Red Blood Cell (RBC) Count 3.54 mill/uL (4.20-5.40); White Blood Cell (WBC) Count 9.9 thou/uL (4.8-10.8)
[2019-09-20 06:21] LABS: Anion Gap 14 mmol/L (10-20); BUN (Urea Nitrogen) 21 mg/dL (9.8-20.1); Calc. Creatinine Clearance 57 mL/min (70-130); Calcium 8.9 mg/dL (7.8-10.44); Carbon Dioxide 27 mmol/L (23-31); Chloride 101 mmol/L (98-107); Estimated GFR-MDRD 64; Glucose 140 mg/dL (83-110); Potassium 4.6 mmol/L (3.5-5.1); Sodium 137 mmol/L (136-145)
[2019-09-20 06:27] LABS: Band 7 % (5-11); Lymphocytes 13 % (21-51); MDiff Complete? YES; Monocytes 2 % (0-10); Neutrophil 78 % (42-75)
[2019-09-20] MEDS: Clopidogrel Bisulfate 75 MG TAB PO SCH (08:34)
[2019-09-20] MEDS: Aspirin 81 mg Enteric Coated Tablet PO SCH (08:34)
[2019-09-20] MEDS: Dexamethasone 4 MG TAB PO SCH (08:35)
[2019-09-20] MEDS ORDERED: Enoxaparin Sodium 30 MG/0.3 ML SYRINGE SC SCH (09:00)
[2019-09-20 14:49] LABS: Lactic Acid 2.4 mmol/L (0.5-2.2)
--- NOTE | 2019-09-20 15:28 | PDOC.HOSPP ---
- Subjective Subjective: Seen and examined. Breathing comfortably on low-flow nasal cannula. Still with cough and shortness of breath. Denies fever. Patient states that prior to this she has been good physical endurance and does recommended bike 5 miles per day at home. She wishes to go home as soon as possible to take care of her . - Objective Vital Signs & Weight: Vital Signs (12 hours) Temp Pulse Resp BP Pulse Ox 09/20/19 14:29 20 88 L 09/20/19 12:00 98.1 F 66 18 129/78 96 09/20/19 08:00 98.0 F 64 20 129/76 97 Weight Weight 163 lb Result Diagrams: 09/20/19 05:49 09/20/19 05:48 Radiology Reviewed by me: Yes Hospitalist ROS - Review of Systems All other systems reviewed; all pertinent +/- noted in HPI/Subj - Medication Medications: Active Medications Generic Name Dose Route Start Last Admin Trade Name Freq PRN Reason Stop Dose Admin Aspirin 81 mg 09/20/19 09:00 09/20/19 08:34 Ecotrin PO 81 mg DAILY MARYANN Administration Benzonatate 100 mg 09/19/19 22:14 09/20/19 05:02 Tessalon PO 100 mg TIDPRN PRN Administration Cough Clopidogrel Bisulfate 75 mg 09/20/19 09:00 09/20/19 08:34 Plavix PO 75 mg DAILY MARYANN Administration Dexamethasone 6 mg 09/20/19 08:00 09/20/19 08:35 Decadron PO 09/23/19 08:01 6 mg QAM-WM MARYANN Administration Famotidine 20 mg 09/19/19 21:00 09/19/19 21:22 Pepcid PO 20 mg 2100 MARYANN Administration Levothyroxine Sodium 75 mcg 09/20/19 06:00 09/20/19 05:02 Synthroid PO 75 mcg 0600 MARYANN Administration Pantoprazole Sodium 40 mg 09/20/19 09:00 09/20/19 08:34 Protonix PO 40 mg BID MARYANN Administration - Exam General Appearance: awake alert Eye: PERRL, anicteric sclera ENT: normocephalic atraumatic, moist mucosa Neck: supple, symmetric, no lymphadenopathy Heart: no murmur, no gallops, no rubs Respiratory: no rales, no ronchi, normal chest expansion, no tachypnea, wheezes Gastrointestinal: soft, non-tender, no guarding, no rigidity Extremities: no edema Skin: no lesions, no rashes Neurological: cranial nerve grossly intact, no focal deficits Musculoskeletal: generalized weakness Psychiatric: normal behavior, A&O x 3 Hosp A/P (1) Pneumonia due to COVID-19 virus Code(s): U07.1 - COVID-19; J12.89 - OTHER VIRAL PNEUMONIA Status: Acute (2) Shortness of breath Code(s): R06.02 - SHORTNESS OF BREATH Status: Acute (3) Hypoxemia Code(s): R09.02 - HYPOXEMIA Status: Acute (4) Cough Code(s): R05 - COUGH Status: Acute (5) CAD (coronary artery disease) of artery bypass graft Code(s): I25.810 - ATHEROSCLEROSIS OF CABG W/O ANGINA PECTORIS Status: Acute (6) HTN (hypertension) Code(s): I10 - ESSENTIAL (PRIMARY) HYPERTENSION Status: Acute (7) HLD (hyperlipidemia) Code(s): E78.5 - HYPERLIPIDEMIA, UNSPECIFIED Status: Acute (8) Hypothyroid Code(s): E03.9 - HYPOTHYROIDISM, UNSPECIFIED Status: Acute (9) Osteoarthritis Code(s): M19.90 - UNSPECIFIED OSTEOARTHRITIS, UNSPECIFIED SITE Status: Acute - Plan Plan: medical unit infectious disease consultation, recommendations appreciated IV antibiotics steroids breathing treatments supplemental oxygen as needed to maintain O2 saturation's continue other home medications as able blood pressure control blood sugar control G.I. prophylaxis DVT prophylaxis
--- NOTE | 2019-09-20 15:42 | CON ---
DATE OF CONSULTATION: 09/20/2019 REASON FOR CONSULTATION: COVID pneumonia. HISTORY OF PRESENT ILLNESS: An 83-year-old with history of coronary artery disease, bypass graft surgery, mixed connective tissue disorder, and lymphoma, in remission, who acquired COVID pneumonia on 09/02, first identified symptoms, tested positive in one of those standalone ERs, and did relatively well initially, but then became sicker with fever and went to see her doctor, prescribed Decadron, which she has been taking for the past 5 days, eventually became hypoxemic and had to be admitted. She is now awake, alert, oriented, speaking in full sentences. She actually looks pretty well at the moment. No headaches. Able to eat. Good appetite and has no evidence of anosmia. She is on nasal cannula O2 at 3 L. No chest pain. No abdominal pain or diarrhea. No genitourinary symptoms. No joint symptoms. No neurological issues. MEDICAL HISTORY: 1. Mixed connective tissue disorder. 2. Coronary artery disease. 3. Bowel resection. 4. Tubal ligation. 5. Knee replacement. 6. Pelvic abscess. SOCIAL HISTORY: . FAMILY HISTORY: had COVID before she did, at least he resolved quicker than hers and it goes for family history as well. Parent most likely acquired from the otologist who goes to their home. ALLERGIES: ADVIL, NITROFURANTOIN, PENICILLAMINE, AND TORADOL. MEDICATIONS: 1. Alprazolam. 2. Aspirin. 3. Azithromycin. 4. Decadron. 5. Levothyroxine. 6. Pantoprazole. PHYSICAL EXAMINATION: VITAL SIGNS: T-max 98.9, blood pressure 120/70, pulse 64, breathing at 22 times a minute, O2 sats started at 94 and now 97 with nasal cannula O2 at 3 L. SKIN: Normal. There is no lymphadenopathy. HEENT: Ocular movements conjugate. Sclerae white. Oral cavity normal. NECK: Supple. LUNGS: Fairly clear breath sounds. HEART: S1 and S2. Regular rate. ABDOMEN: Soft, not distended or tender. No ascites. No bladder distention. EXTREMITIES: No joint inflammatory activity. Moves extremities equally. NEUROLOGIC: Cognitive function appears to be intact. LABORATORY DATA: White cell count is 14.2, down to 9.9; hemoglobin 10.4; platelets 406; had 90% neutrophils and now 78% neutrophils. Creatinine 0.84 and AST 38. Chest x-ray, bilateral diffuse infiltrates. There is a pathology from a gastric biopsy with mild reactive gastropathy. ASSESSMENT: 1. Coronary artery disease. 2. Mixed connective tissue disorder, not on steroids prior to this illness. 3. [id number] COVID illness for the past 17 days, now on corticosteroids, Decadron, for the past 5 days, still hypoxemic. DISCUSSION: The patient is in the inflammatory phase of illness. She will continue on Decadron and we will add convalescent plasma. Hopefully, she will avoid further deterioration, requirement for more invasive ventilatory support effort. Follows ferritin, D-dimer, CRP, and LDH, and she needs to have negative COVID test before the home health aide can go to their place, and so hopefully, when she is ready for discharge planning, then we can submit repeat COVID PCR. Job ID: [id number]
[2019-09-20] MEDS: Enoxaparin Sodium 40 MG/0.4 ML SYRINGE SC SCH (20:55)
[2019-09-20] MEDS: Atorvastatin Calcium 20 MG TAB PO SCH (20:55)
[2019-09-20] MEDS: ALPRAZolam 0.25 MG TAB PO SCH (20:55)
[2019-09-20] MEDS: Famotidine 20 MG TAB PO SCH (20:55)
[2019-09-21] MEDS: Levothyroxine Sodium 75 MCG TAB PO SCH (05:34)
[2019-09-21 05:56] LABS: #Monocytes 0.5 thou/uL (0.11-0.59); #Neutrophils 7.8 thou/uL (1.40-6.50); %Basophils 0.1 % (0.0-1.0); %Eosinophils 0.2 % (0.0-10.0); %Lymphocytes 10.8 % (21.0-51.0); %Monocytes 5.5 % (0.0-10.0); %Neutrophils 83.4 % (42.0-75.0); Hemoglobin 9.8 g/dL (12.0-16.0); Mean Corpuscular HGB CONC 30.9 g/dL (32.0-36.0); Mean Corpuscular Hemoglobin 27.9 pg (27.0-31.0); Mean Corpuscular Volume 90.5 fL (78.0-98.0); Mean Platelet Volume 7.9 fL (7.4-10.4); Platelet Count 386 thou/uL (130-400); RBC Distribution Width 12.6 % (11.5-14.5); White Blood Cell (WBC) Count 9.3 thou/uL (4.8-10.8)
[2019-09-21 06:16] LABS: Anion Gap 13 mmol/L (10-20); BUN (Urea Nitrogen) 23 mg/dL (9.8-20.1); Calc. Creatinine Clearance 57 mL/min (70-130); Calcium 8.7 mg/dL (7.8-10.44); Carbon Dioxide 28 mmol/L (23-31); Chloride 101 mmol/L (98-107); Estimated GFR-MDRD 64; Glucose 94 mg/dL (83-110); Potassium 4.4 mmol/L (3.5-5.1); Sodium 138 mmol/L (136-145)
[2019-09-21] MEDS: Clopidogrel Bisulfate 75 MG TAB PO SCH (08:20)
[2019-09-21] MEDS: Dexamethasone 4 MG TAB PO SCH (08:20)
[2019-09-21] MEDS: Aspirin 81 mg Enteric Coated Tablet PO SCH (08:21)
[2019-09-21] MEDS: Benzonatate 100 MG CAP PO PRN ×2 (08:21→22:34)
--- NOTE | 2019-09-21 13:35 | PDOC.HOSPP ---
- Subjective Subjective: Seen and examined. Remains on Oxygen. Still with cough, non productive. Using breathing treatments. Tolerating convalescent plasma without S/e. No new complaints. - Objective Vital Signs & Weight: Vital Signs (12 hours) Temp Pulse Resp BP Pulse Ox 09/21/19 12:10 98.1 F 71 20 116/55 L 92 L 09/21/19 08:00 98.6 F 77 15 91/51 L 09/21/19 05:33 97 09/21/19 04:00 98.5 F 61 19 126/67 91 L Weight Weight 163 lb I&O: 09/20/19 09/21/19 09/22/19 06:59 06:59 06:59 Intake Total 240 Balance 240 Result Diagrams: 09/21/19 05:33 09/21/19 05:33 Radiology Reviewed by me: Yes Hospitalist ROS - Review of Systems All other systems reviewed; all pertinent +/- noted in HPI/Subj - Medication Medications: Active Medications Generic Name Dose Route Start Last Admin Trade Name Freq PRN Reason Stop Dose Admin Alprazolam 0.25 mg 09/20/19 21:00 09/20/19 20:55 Xanax PO 0.25 mg HS MARYANN Administration Aspirin 81 mg 09/20/19 09:00 09/21/19 08:21 Ecotrin PO 81 mg DAILY MARYANN Administration Atorvastatin Calcium 20 mg 09/20/19 21:00 09/20/19 20:55 Lipitor PO 20 mg HS MARYANN Administration Benzonatate 100 mg 09/19/19 22:14 09/21/19 08:21 Tessalon PO 100 mg TIDPRN PRN Administration Cough Clopidogrel Bisulfate 75 mg 09/20/19 09:00 09/21/19 08:20 Plavix PO 75 mg DAILY MARYANN Administration Dexamethasone 6 mg 09/20/19 08:00 09/21/19 08:20 Decadron PO 09/23/19 08:01 6 mg QAM-WM MARYANN Administration Enoxaparin Sodium 40 mg 09/20/19 21:00 09/20/19 20:55 Lovenox SC 40 mg 2100 MARYANN Administration Famotidine 20 mg 09/19/19 21:00 09/20/19 20:55 Pepcid PO 20 mg 2100 MARYANN Administration Levothyroxine Sodium 75 mcg 09/20/19 06:00 09/21/19 05:34 Synthroid PO 75 mcg 0600 MARYANN Administration Pantoprazole Sodium 40 mg 09/20/19 09:00 09/21/19 08:20 Protonix PO 40 mg BID MARYANN Administration - Exam General Appearance: NAD, awake alert Eye: anicteric sclera ENT: normocephalic atraumatic, moist mucosa Neck: supple, symmetric Heart: no murmur, no gallops, no rubs Respiratory: no rales, normal chest expansion, no tachypnea, rhonchi, wheezes Gastrointestinal: soft, non-tender, non-distended, no rigidity Extremities: no edema Skin: no lesions, no rashes Neurological: cranial nerve grossly intact, no focal deficits Musculoskeletal: generalized weakness Psychiatric: A&O x 3 Hosp A/P (1) Pneumonia due to COVID-19 virus Code(s): U07.1 - COVID-19; J12.89 - OTHER VIRAL PNEUMONIA Status: Acute (2) Shortness of breath Code(s): R06.02 - SHORTNESS OF BREATH Status: Acute (3) Hypoxemia Code(s): R09.02 - HYPOXEMIA Status: Acute (4) Cough Code(s): R05 - COUGH Status: Acute (5) CAD (coronary artery disease) of artery bypass graft Code(s): I25.810 - ATHEROSCLEROSIS OF CABG W/O ANGINA PECTORIS Status: Acute (6) HTN (hypertension) Code(s): I10 - ESSENTIAL (PRIMARY) HYPERTENSION Status: Acute (7) HLD (hyperlipidemia) Code(s): E78.5 - HYPERLIPIDEMIA, UNSPECIFIED Status: Acute (8) Hypothyroid Code(s): E03.9 - HYPOTHYROIDISM, UNSPECIFIED Status: Acute (9) Osteoarthritis Code(s): M19.90 - UNSPECIFIED OSTEOARTHRITIS, UNSPECIFIED SITE Status: Acute - Plan Plan: medical unit infectious disease consultation, recommendations appreciated Convalescent plasma IV antibiotics steroids breathing treatments supplemental oxygen as needed to maintain O2 saturation's continue other home medications as able blood pressure control blood sugar control G.I. prophylaxis DVT prophylaxis
[2019-09-21] MEDS: Enoxaparin Sodium 40 MG/0.4 ML SYRINGE SC SCH (22:33)
[2019-09-21] MEDS: ALPRAZolam 0.25 MG TAB PO SCH (22:34)
[2019-09-21] MEDS: Atorvastatin Calcium 20 MG TAB PO SCH (22:34)
[2019-09-21] MEDS: Famotidine 20 MG TAB PO SCH (22:34)
[2019-09-22] MEDS: Levothyroxine Sodium 75 MCG TAB PO SCH (05:04)
[2019-09-22 05:41] LABS: #Basophils 0.1 thou/uL (0.0-0.2); #Lymphocytes 1.1 thou/uL (1.20-3.40); #Monocytes 0.5 thou/uL (0.11-0.59); #Neutrophils 7.1 thou/uL (1.40-6.50); %Basophils 0.8 % (0.0-1.0); %Eosinophils 0.3 % (0.0-10.0); %Monocytes 5.5 % (0.0-10.0); %Neutrophils 81.4 % (42.0-75.0); Hemoglobin 10.3 g/dL (12.0-16.0); Mean Corpuscular HGB CONC 30.9 g/dL (32.0-36.0); Mean Corpuscular Hemoglobin 28.6 pg (27.0-31.0); Mean Corpuscular Volume 92.6 fL (78.0-98.0); Mean Platelet Volume 8.1 fL (7.4-10.4); Platelet Count 396 thou/uL (130-400); RBC Distribution Width 12.9 % (11.5-14.5); White Blood Cell (WBC) Count 8.7 thou/uL (4.8-10.8)
[2019-09-22 05:51] LABS: Anion Gap 12 mmol/L (10-20); BUN (Urea Nitrogen) 21 mg/dL (9.8-20.1); Calc. Creatinine Clearance 58 mL/min (70-130); Calcium 8.7 mg/dL (7.8-10.44); Carbon Dioxide 27 mmol/L (23-31); Chloride 102 mmol/L (98-107); Estimated GFR-MDRD 65; Glucose 93 mg/dL (83-110); Potassium 4.3 mmol/L (3.5-5.1); Sodium 137 mmol/L (136-145)
[2019-09-22] MEDS: Benzonatate 100 MG CAP PO PRN ×2 (08:17→20:04)
[2019-09-22] MEDS: Aspirin 81 mg Enteric Coated Tablet PO SCH (08:17)
[2019-09-22] MEDS: Clopidogrel Bisulfate 75 MG TAB PO SCH (08:18)
[2019-09-22] MEDS: Dexamethasone 4 MG TAB PO SCH (08:18)
--- NOTE | 2019-09-22 14:33 | PDOC.HOSPP ---
- Subjective Subjective: Seen and examined. Patient still with cough, dry and non productive. Still with shortness of breath and requiring O2 to maintain O2 saturations, though she states she if feeling a little better today. Time given for question, all answered in detail. - Objective Vital Signs & Weight: Vital Signs (12 hours) Temp Pulse Resp BP BP Pulse Ox 09/22/19 08:00 98.5 F 76 18 121/72 93 L 09/22/19 04:00 98.7 F 63 19 125/74 97 Weight Weight 163 lb I&O: 09/21/19 09/22/19 09/23/19 06:59 06:59 06:59 Intake Total 240 Balance 240 Result Diagrams: 09/22/19 05:14 09/22/19 05:14 Radiology Reviewed by me: Yes Hospitalist ROS - Review of Systems All other systems reviewed; all pertinent +/- noted in HPI/Subj - Medication Medications: Active Medications Generic Name Dose Route Start Last Admin Trade Name Freq PRN Reason Stop Dose Admin Alprazolam 0.25 mg 09/20/19 21:00 09/21/19 22:34 Xanax PO 0.25 mg HS MARYANN Administration Aspirin 81 mg 09/20/19 09:00 09/22/19 08:17 Ecotrin PO 81 mg DAILY MARYANN Administration Atorvastatin Calcium 20 mg 09/20/19 21:00 09/21/19 22:34 Lipitor PO 20 mg HS MARYANN Administration Benzonatate 100 mg 09/19/19 22:14 09/22/19 08:17 Tessalon PO 100 mg TIDPRN PRN Administration Cough Clopidogrel Bisulfate 75 mg 09/20/19 09:00 09/22/19 08:18 Plavix PO 75 mg DAILY MARYANN Administration Dexamethasone 6 mg 09/20/19 08:00 09/22/19 08:18 Decadron PO 09/23/19 08:01 6 mg QAM-WM MARYANN Administration Enoxaparin Sodium 40 mg 09/20/19 21:00 09/21/19 22:33 Lovenox SC 40 mg 2100 MARYANN Administration Famotidine 20 mg 09/19/19 21:00 09/21/19 22:34 Pepcid PO 20 mg 2100 MARYANN Administration Levothyroxine Sodium 75 mcg 09/20/19 06:00 09/22/19 05:04 Synthroid PO 75 mcg 0600 MARYANN Administration Pantoprazole Sodium 40 mg 09/20/19 09:00 09/22/19 08:17 Protonix PO 40 mg BID MARYANN Administration - Exam General Appearance: awake alert Eye: PERRL, anicteric sclera ENT: normocephalic atraumatic, moist mucosa Neck: supple, symmetric, no thyromegaly Heart: no murmur, no gallops, no rubs Respiratory: no rales, no ronchi, normal chest expansion, no tachypnea, wheezes Gastrointestinal: soft, non-tender, non-distended, no guarding, no rigidity Extremities: no edema Skin: no lesions, no rashes Neurological: cranial nerve grossly intact, no new deficit Musculoskeletal: generalized weakness Psychiatric: normal behavior, A&O x 3 Hosp A/P (1) Pneumonia due to COVID-19 virus Code(s): U07.1 - COVID-19; J12.89 - OTHER VIRAL PNEUMONIA Status: Acute (2) Shortness of breath Code(s): R06.02 - SHORTNESS OF BREATH Status: Acute (3) Hypoxemia Code(s): R09.02 - HYPOXEMIA Status: Acute (4) Cough Code(s): R05 - COUGH Status: Acute (5) CAD (coronary artery disease) of artery bypass graft Code(s): I25.810 - ATHEROSCLEROSIS OF CABG W/O ANGINA PECTORIS Status: Acute (6) HTN (hypertension) Code(s): I10 - ESSENTIAL (PRIMARY) HYPERTENSION Status: Acute (7) HLD (hyperlipidemia) Code(s): E78.5 - HYPERLIPIDEMIA, UNSPECIFIED Status: Acute (8) Hypothyroid Code(s): E03.9 - HYPOTHYROIDISM, UNSPECIFIED Status: Acute (9) Osteoarthritis Code(s): M19.90 - UNSPECIFIED OSTEOARTHRITIS, UNSPECIFIED SITE Status: Acute - Plan Plan: medical unit infectious disease consultation, recommendations appreciated Patient slowly improving on maximum medical therapy Convalescent plasma IV antibiotics steroids breathing treatments supplemental oxygen as needed to maintain O2 saturation's continue other home medications as able blood pressure control blood sugar control G.I. prophylaxis DVT prophylaxis Disposition: Patient happy with progress and agrees with plan of care.
[2019-09-22] MEDS: Atorvastatin Calcium 20 MG TAB PO SCH (20:04)
[2019-09-22] MEDS: ALPRAZolam 0.25 MG TAB PO SCH (20:04)
[2019-09-22] MEDS: Famotidine 20 MG TAB PO SCH (20:04)
[2019-09-22] MEDS: Enoxaparin Sodium 40 MG/0.4 ML SYRINGE SC SCH (20:05)
[2019-09-23] MEDS: Benzonatate 100 MG CAP PO PRN ×2 (05:28→17:26)
[2019-09-23] MEDS: Levothyroxine Sodium 75 MCG TAB PO SCH (05:28)
[2019-09-23] MEDS: Aspirin 81 mg Enteric Coated Tablet PO SCH (08:34)
[2019-09-23] MEDS: Clopidogrel Bisulfate 75 MG TAB PO SCH (08:34)
[2019-09-23] MEDS: Dexamethasone 4 MG TAB PO SCH (08:34)
[2019-09-23] MEDS: Calcium Carbonate 500 MG TAB PO SCH (12:07)
[2019-09-23] MEDS: Cholecalciferol 1,000 UNITS (25 MCG) TAB PO SCH (12:07)
--- NOTE | 2019-09-23 14:25 | PDOC.HOSPP ---
- Subjective Encounter Date: 09/23/19 Encounter Time: 11:30 Subjective: pt up in bed still has a cough. - Objective Vital Signs & Weight: Vital Signs (12 hours) Temp Pulse Resp BP Pulse Ox 09/23/19 08:00 98.1 F 67 16 133/75 94 L Weight Weight 163 lb I&O: 09/22/19 09/23/19 09/24/19 06:59 06:59 06:59 Intake Total 600 Balance 600 Result Diagrams: 09/22/19 05:14 09/22/19 05:14 Hospitalist ROS - Review of Systems Respiratory: reports: cough, shortness of breath Cardiovascular: denies: chest pain, palpitations, orthopnea, paroxysmal noc. dyspnea, edema, light headedness, other Gastrointestinal: denies: nausea, vomiting, abdominal pain, diarrhea, constipation, melena, hematochezia, other Genitourinary: denies: dysuria, frequency, incontinence, hematuria, retention, other - Medication Medications: Active Medications Generic Name Dose Route Start Last Admin Trade Name Freq PRN Reason Stop Dose Admin Acetaminophen 650 mg 09/19/19 20:14 09/22/19 23:06 Tylenol PO 650 mg Q4H PRN Administration Headache/Fever/Mild Pain (1-3) Alprazolam 0.25 mg 09/20/19 21:00 09/22/19 20:04 Xanax PO 0.25 mg HS MARYANN Administration Aspirin 81 mg 09/20/19 09:00 09/23/19 08:34 Ecotrin PO 81 mg DAILY MARYANN Administration Atorvastatin Calcium 20 mg 09/20/19 21:00 09/22/19 20:04 Lipitor PO 20 mg HS MARYANN Administration Benzonatate 100 mg 09/19/19 22:14 09/23/19 05:28 Tessalon PO 100 mg TIDPRN PRN Administration Cough Calcium Carbonate 500 mg 09/23/19 09:00 09/23/19 12:07 Oscal-500 PO 500 mg DAILY MARYANN Administration Cholecalciferol 2,000 units 09/23/19 09:00 09/23/19 12:07 Vitamin D3 PO 2,000 units DAILY MARYANN Administration Clopidogrel Bisulfate 75 mg 09/20/19 09:00 09/23/19 08:34 Plavix PO 75 mg DAILY MARYANN Administration Enoxaparin Sodium 40 mg 09/20/19 21:00 09/22/19 20:05 Lovenox SC 40 mg 2100 MARYANN Administration Famotidine 20 mg 09/19/19 21:00 09/22/19 20:04 Pepcid PO 20 mg 2100 MARYANN Administration Levothyroxine Sodium 75 mcg 09/20/19 06:00 09/23/19 05:28 Synthroid PO 75 mcg 0600 MARYANN Administration Pantoprazole Sodium 40 mg 09/20/19 09:00 09/23/19 08:34 Protonix PO 40 mg BID MARYANN Administration - Exam Neck: negative: supple, symmetric, no JVD, no thyromegaly, no lymphadenopathy, no carotid bruit, JVD Heart: negative: RRR, no murmur, no gallops, no rubs, normal peripheral pulses, irregular, diminshed peripheral pulses, murmur present, II/IV, III/IV Respiratory: negative: CTAB, no wheezes, no rales, no ronchi, normal chest expansion, no tachypnea, normal percussion, rales, rhonchi, tachypneic, wheezes Gastrointestinal: negative: soft, non-tender, non-distended, normal bowel sounds , no palpable masses, no hepatomegaly, no splenomegaly, no bruit, no guarding, no rigidity, tender to palpation, distended, diminished bowl sounds, voluntary guarding Hosp A/P (1) Acute respiratory failure with hypoxia Code(s): J96.01 - ACUTE RESPIRATORY FAILURE WITH HYPOXIA Status: Acute (2) Cough Code(s): R05 - COUGH Status: Acute (3) HLD (hyperlipidemia) Code(s): E78.5 - HYPERLIPIDEMIA, UNSPECIFIED Status: Acute (4) HTN (hypertension) Code(s): I10 - ESSENTIAL (PRIMARY) HYPERTENSION Status: Acute (5) Pneumonia due to COVID-19 virus Code(s): U07.1 - COVID-19; J12.89 - OTHER VIRAL PNEUMONIA Status: Acute (6) Shortness of breath Code(s): R06.02 - SHORTNESS OF BREATH Status: Acute - Plan pt on oxygen will continue. she still has a cough. will check inflammatory markers and see how she does in am. possible home if she continues to improve. she will need oxygen at home. pt on decadron.
[2019-09-23] MEDS: ALPRAZolam 0.25 MG TAB PO SCH (20:24)
[2019-09-23] MEDS: Famotidine 20 MG TAB PO SCH (20:24)
[2019-09-23] MEDS: Atorvastatin Calcium 20 MG TAB PO SCH (20:24)
[2019-09-23] MEDS: Enoxaparin Sodium 40 MG/0.4 ML SYRINGE SC SCH (20:24)
[2019-09-24] MEDS: Levothyroxine Sodium 75 MCG TAB PO SCH (05:46)
[2019-09-24 06:15] LABS: #Eosinphils 0.1 thou/uL (0.0-0.7); #Lymphocytes 1.3 thou/uL (1.20-3.40); #Monocytes 0.5 thou/uL (0.11-0.59); #Neutrophils 7.2 thou/uL (1.40-6.50); %Basophils 0.1 % (0.0-1.0); %Eosinophils 0.6 % (0.0-10.0); %Lymphocytes 14.1 % (21.0-51.0); %Neutrophils 80.2 % (42.0-75.0); Hemoglobin 10.7 g/dL (12.0-16.0); Mean Corpuscular HGB CONC 31.6 g/dL (32.0-36.0); Mean Corpuscular Hemoglobin 29.9 pg (27.0-31.0); Mean Corpuscular Volume 94.6 fL (78.0-98.0); Mean Platelet Volume 8.4 fL (7.4-10.4); Platelet Count 311 thou/uL (130-400); RBC Distribution Width 12.9 % (11.5-14.5); Red Blood Cell (RBC) Count 3.58 mill/uL (4.20-5.40)
[2019-09-24 06:32] LABS: ALT (SGPT) 32 U/L (8-55); AST (SGOT) 16 U/L (5-34); Albumin 2.8 g/dL (3.4-4.8); Alkaline Phosphatase 54 U/L (40-110); Anion Gap 10 mmol/L (10-20); BUN (Urea Nitrogen) 26 mg/dL (9.8-20.1); Bilirubin, Total 0.2 mg/dL (0.2-1.2); CRP (Inflammatory) 2.92 mg/dL (= or < 0.5); Calc. Creatinine Clearance 56 mL/min (70-130); Calcium 8.5 mg/dL (7.8-10.44); Carbon Dioxide 30 mmol/L (23-31); Chloride 104 mmol/L (98-107); Estimated GFR-MDRD 64; Globulin 2.9 g/dL (2.4-3.5); Glucose 87 mg/dL (83-110); Potassium 4.2 mmol/L (3.5-5.1); Protein, Total 5.7 g/dL (6.0-8.3); Sodium 140 mmol/L (136-145)
[2019-09-24] MEDS: Benzonatate 100 MG CAP PO PRN (07:54)
[2019-09-24] MEDS: Aspirin 81 mg Enteric Coated Tablet PO SCH (07:54)
[2019-09-24] MEDS: Calcium Carbonate 500 MG TAB PO SCH (07:54)
[2019-09-24] MEDS: Cholecalciferol 1,000 UNITS (25 MCG) TAB PO SCH (07:54)
[2019-09-24] MEDS: Clopidogrel Bisulfate 75 MG TAB PO SCH (07:54)
[2019-09-24 12:03] VITALS: BP 121/62; TEMP 97.9
--- NOTE | 2019-09-24 14:25 | DIS ---
DATE OF ADMISSION: 09/20/2019 DATE OF DISCHARGE: 09/24/2019 DISCHARGE DIAGNOSES: As of the following; 1. Acute hypoxic respiratory failure, resolved. 2. COVID pneumonia. 3. Hypertension. 4. Cough. HOSPITAL COURSE: The patient is an 83-year-old female, who initially presented to the hospital on 09/18 with complaints of shortness of breath. She was found to be hypoxic, 84% on room air. She was treated with steroids. She was seen by Infectious Disease, not a candidate for remdesivir. She continued to improve through the hospital stay. She was ambulated on discharge and she did require oxygen. The patient will follow up as an outpatient. She will follow up as an outpatient for repeat test for Home Health to come back and to take care of her . Her home medications will be as of the following; 1. Levothyroxine 75 mcg daily. 2. Protonix 40 mg twice a day. 3. Atorvastatin 40 mg daily. 4. Aspirin 325 until 09/28 and then 09/29. 5. Plavix 75 mg daily. I have held her blood pressure medications since her blood pressure has been pretty stable. PHYSICAL EXAMINATION: VITAL SIGNS: As of the following; temperature of 97.9, pulse 65, respirations 16, she is 94% on 1 L, and blood pressure 121/62. GENERAL: She is awake, alert, and oriented x3. Does not appear in distress. CV: S1 and S2 present. No murmurs, rubs, or gallops. ABDOMEN: Soft and nontender. Bowel sounds are present x2. Again, she will be discharged home. She will follow up with her primary. Again, she initially was diagnosed with COVID on September 07 and I have told her that if she deteriorates, she will have to come back to the hospital. Job ID: [id number]
--- NOTE | 2019-09-25 04:42 | PQF ---
CLINICAL DOCUMENTATION CLARIFICATION FORM: Dear : Tayler Lockett Date / Time: 09/25/19 8068 Please exercise your independent, professional judgment in responding to the clarification form. Clinical indicators are provided on the bottom of this form for your review Please check appropriate box(es) to clarify if the following diagnosis has been ruled in our ruled out: Sepsis [ ] Ruled in diagnosis [ x ] Continue to treat [ ] Resolved [ ] Ruled out diagnosis [ ] Improving [ ] Cannot rule out diagnosis [ ] Other diagnosis [ ] Unable to determine Physician Signature: Date/Time: For continuity of documentation, please document condition throughout progress notes and discharge summary. Thank You. To be completed by CDI/Coding staff for physician review: Present Clinical Indicators - Signs / Symptoms / Labs Results and Location in Medical Record [X] WBC 14.2, Plt count 446, Neutrophils 90.5, Band 7 Laboratory hematology 09/18 [X] Blood culture: No growth in 5 days Microbiology 09/18 [X] BP 134/59, Pulse 93, Resp 31, Temp 98.4 Vital signs 09/18 [X] Covid 19 PNA, hypoxica, Viral sepsis ED notes p12 09/18 [X] Breathing I breathing worse H&P p1 09/18 [facility] [employer] [X] Acute hypoxia respiratory failure DS p1 09/23 Dr Lockett Present Risk Factors Results and Location in Medical Record [X] 83 year-old Female H&P p1 09/18 [facility] [employer]OUNTING CL[facility] [X] Hx of [place] H&P p1 09/18 [facility] [employer]OUNTING [employer]-[facility] [X] Lymphoma H&P p1 09/18 [facility] [employer]OUNTING CL[facility] [X] Covid 19 PNA H&P p3 09/18 [facility] [employer]OUNTING [employer] [X] HTN H&P p3 09/18 [facility] [employer] ACCOUNTING CL[employer]-BC Present Treatments Results and Location in Medical Record [X] IV Azithromycin 500 mg MAY 05 [X] Levaquin 750 mg oral MAY 05 [X] IV Vancomycin 1 gm MAY 05 [X] Blood culture Microbiology 09/18 [X] Transfusion: FFP Blood band 09/20 [X] Chest X-ray Imaging Dr Castillo 09/18 [X] ID consult Consult Chris Burch 09/18 [X] Oxygen 3L Respiratory Panel 09/18 CDS/General Doc Signature: Erum Ashford Joey Phone #: [phone] Date/Time: 09/25/19 0441 This is a permanent part of the Medical Record [facility]
== END 2019-09-24 14:48 | disposition home or self-care (01) | DRG 871 ==
LOC: ERS 15:23 → T4-B 17:53 → OBSVTOIN 09-20 14:57
PROVIDERS: ADMIT Internal Medicine; ATTEND Internal Medicine
PROC: 30233L1 Transfusion of Nonautologous Fresh Plasma into Peripheral Vein, Percutaneous Approach (ICD-10-PCS; principal; 2019-09-21)
PROC: 30233K1 Transfusion of Nonautologous Frozen Plasma into Peripheral Vein, Percutaneous Approach (ICD-10-PCS; 2019-09-21)
DX: A41.89 Other specified sepsis (principal); U07.1 COVID-19; J12.89 Other viral pneumonia; J96.01 Acute respiratory failure with hypoxia; Z96.659 Presence of unspecified artificial knee joint; E78.5 Hyperlipidemia, unspecified; I25.10 Atherosclerotic heart disease of native coronary artery without angina pectoris; L94.8 Other specified localized connective tissue disorders; M19.90 Unspecified osteoarthritis, unspecified site; I25.2 Old myocardial infarction; Z90.49 Acquired absence of other specified parts of digestive tract; Z98.51 Tubal ligation status; Z88.0 Allergy status to penicillin; Z88.8 Allergy status to other drugs, medicaments and biological substances; Z79.899 Other long term (current) drug therapy; Z79.02 Long term (current) use of antithrombotics/antiplatelets; Z79.82 Long term (current) use of aspirin; Z79.890 Hormone replacement therapy; Z95.1 Presence of aortocoronary bypass graft; Z85.72 Personal history of non-Hodgkin lymphomas; Z87.898 Personal history of other specified conditions
CPT/HCPCS: 36415; 36430; 71045; 80048; 80053; 82728; 83605; 83880; 84484; 85025; 85379; 86140; 86850; 86900; 86901; 87040; 93005; 94664; 96365; 96367; 96372; 96375; G0378; J0456; J1100; J1650; J1956; J3370; J7050; J8540